=== PATIENT | female | born 1980 | race Caucasian/White ===

== ENCOUNTER 2020-01-02 20:39 | Emergency (ER) | payer SELFPAY ==
[2020-01-02 21:18] LABS: Absolute Lymphocytes (CBC) 2.3 K/uL (0.7-4.9); Basophils % 2.1 % (0-1.3); Hematocrit 39.8 % (36.0-45.0); MPV 9.2 fL (7.6-11.3); RBC Red Blood Cell Count 4.72 M/uL (3.86-4.86)
[2020-01-02 21:27] LABS: Protime INR 0.94
[2020-01-02 21:56] LABS: ALT/SGPT 23 U/L (12-78); Albumin 3.8 g/dL (3.4-5.0); Alkaline Phosphatase 49 U/L (45-117); BUN Blood Urea Nitrogen 8 mg/dL (7-18); Bicarbonate 22 mmol/L (21-32); Bilirubin Direct < 0.1 mg/dL (0-0.2); Bilirubin Total 0.3 mg/dL (0.2-1.0); Glucose Level 78 mg/dL (74-106); Protein, Total 7.9 g/dL (6.4-8.2); Sodium Level 140 mmol/L (136-145)
[2020-01-02 21:57] LABS: AST/SGOT 23 U/L (15-37); Potassium 3.6 mmol/L (3.5-5.1)
[2020-01-02 22:16] LABS: Barbiturates NEGATIVE (NEGATIVE); Benzodiazepines NEGATIVE (NEGATIVE); Cocaine NEGATIVE (NEGATIVE); METHAMPHETAM NEGATIVE (NEGATIVE); Methadone NEGATIVE (NEGATIVE); Opiates NEGATIVE (NEGATIVE); Phencyclidine NEGATIVE (NEGATIVE); THC Cannibis NEGATIVE (NEGATIVE)
[2020-01-02] MEDS ORDERED: THIAMINE 200 MG/2 ML INJ ONE (23:32)
[2020-01-02] MEDS ORDERED: MULTIVITAMINS 10 ML VIAL (INJ) IV ONE (23:32)
[2020-01-02] MEDS ORDERED: NA CHLORIDE 0.9% 0 ML ONE (23:33)
[2020-01-02] MEDS ORDERED: FOLIC ACID 5 MG/ML VIAL ONE (23:33)
--- NOTE | 2020-01-02 23:39 | EDPHYS ---
Physician Documentation [facility] Name: Francy Rodriguez Age: 39 yrs Sex: Female : 1980 Arrival Date: 01/02/2020 Time: 20:41 Bed 19 Private MD: ED Physician Alvaro Waters HPI: 01/01 20:49 This 39 yrs old Female presents to ER via EMS with complaints of Depression. pm1 20:49 The patient presents to the emergency department with depression, over work, Getting pm1 demoted. Onset: The symptoms/episode began/occurred today. Past psychiatric history: Prior diagnosis: Anxiety and Depression. Associated signs and symptoms: The patient has no apparent associated signs or symptoms, Pertinent negatives: chest pain, homicidal ideation, shortness of breath, suicide ideation. Severity of symptoms: Pain is currently a 0 / 10. 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 She would be allowed to stay at [employer] but she would be demoted. She got into an argument with her boss and was told that she needs to go home. Her boyfriend met up with her at home and they drank beers. They were enjoying their evening when a naval police coxswain told them that she could either go to shelter with the officer or go to the hospital by ambulance. She posted on face book that she felt frozen about what to do. She was referring to her job and denies any suicidal or homicidal ideation. Her boyfriend is consistent with her story. 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 - Social history:: Smoking status: Patient reports the use of cigarette tobacco products, smokes one pack cigarettes per day. Patient uses alcohol, on a daily basis. Patient/guardian denies using street drugs. ROS: 20:54 Constitutional: Negative for fever, chills, and weight loss, Eyes: Negative for injury, pm1 pain, redness, and discharge, ENT: Negative for injury, pain, and discharge, Neck: Negative for injury, pain, and swelling, Cardiovascular: Negative for chest pain, palpitations, and edema, Respiratory: Negative for shortness of breath, cough, wheezing, and pleuritic chest pain, Abdomen/GI: Negative for abdominal pain, nausea, vomiting, diarrhea, and constipation, Back: Negative for injury and pain, MS/Extremity: Negative for injury and deformity, Skin: Negative for injury, rash, and discoloration, Neuro: Negative for headache, weakness, numbness, tingling, and seizure. 20:54 Psych: Positive for depression, Stress, Negative for homicidal ideation, suicide gesture, suicidal ideation. Exam: 20:54 Constitutional: This is a well developed, well nourished patient who is awake, alert, pm1 and in no acute distress. Head/Face: Normocephalic, atraumatic. 20:54 Back: No spinal tenderness. No costovertebral tenderness. Full range of motion. Skin: Warm, dry with normal turgor. Normal color with no rashes, no lesions, and no evidence of cellulitis. MS/ Extremity: Pulses equal, no cyanosis. Neurovascular intact. Full, normal range of motion. 20:54 Cardiovascular: Exam negative for acute changes, Rate: normal, Rhythm: regular, Pulses: no pulse deficits are appreciated. 20:54 Respiratory: Exam negative for acute changes, respiratory distress, shortness of breath. 20:54 Neuro: Exam negative for acute changes, Orientation: is normal, Mentation: is normal, Motor: is normal, moves all fours. 20:54 Psych: Behavior/mood is cooperative, Affect is animated, Oriented to person, place, time, Patient has no thoughts/intents to harm self or others. Judgement / Insight is normal. Vital Signs: 20:45 BP 138 / 88; Pulse 111; Resp 18; Temp 97.9; Pulse Ox 100% ; Weight 90.72 kg; Height 6 rr5 ft. 0 in. (182.88 cm); 23:40 BP 130 / 80; Pulse 95; Resp 18; Temp 98; Pulse Ox 100% on R/A; mg2 20:45 Body Mass Index 27.12 (90.72 kg, 182.88 cm) rr5 MDM: 20:47 Patient medically screened. pm1 23:37 Data reviewed: vital signs. Data interpreted: Pulse oximetry: on room air is 100 %. pm1 Interpretation: normal. Counseling: I had a detailed discussion with the patient and/or guardian regarding: the historical points, exam findings, and any diagnostic results supporting the discharge/admit diagnosis, lab results, the need for outpatient follow up, a family practitioner, a psychiatrist, to return to the emergency department if symptoms worsen or persist or if there are any questions or concerns that arise at home. 01/01 20:49 Order name: Acetaminophen pm1 01/01 20:49 Order name: Basic Metabolic Panel; Complete Time: 22:13 pm1 01/01 20:49 Order name: CBC with Diff; Complete Time: 21:28 pm1 01/01 20:49 Order name: ETOH Level; Complete Time: 22:13 pm1 01/01 20:49 Order name: Hepatic Function; Complete Time: 22:13 pm1 01/01 20:49 Order name: PT-INR; Complete Time: 21:37 pm1 01/01 20:49 Order name: Urine Test (obtain specimen); Complete Time: 22:05 pm1 01/01 20:49 Order name: Ptt, Activated; Complete Time: 21:37 pm1 01/01 20:49 Order name: Salicylate; Complete Time: 22:13 pm1 01/01 20:49 Order name: Urine Drug Screen; Complete Time: 22:21 pm1 01/01 20:49 Order name: EKG; Complete Time: 20:50 pm1 01/01 20:49 Order name: EKG - Nurse/Tech; Complete Time: 21:32 pm1 01/01 20:50 Order name: Acetaminophen Level; Complete Time: 22:13 EDMS 01/01 23:46 Order name: Urine Dipstick--Ancillary (enter results) ar5 01/01 20:49 Order name: IV Saline Lock; Complete Time: 21:32 pm1 01/01 20:49 Order name: Labs collected and sent; Complete Time: 21:31 pm1 01/01 20:49 Order name: Urine Dipstick-Ancillary (obtain specimen); Complete Time: 22:05 pm1 Administered Medications: No medications were administered Disposition: 01/02 01:19 Co-signature as Attending Physician, Alvaro Waters MD. pkl Disposition: 01/02/20 23:38 Discharged to Home. Impression: Acute stress reaction, Alcohol abuse with intoxication. - Condition is Stable. - Discharge Instructions: Alcohol Intoxication, Stress and Stress Management. - Medication Reconciliation Form, Thank You Letter, Antibiotic Education, Prescription Opioid Use form. - Follow up: Emergency Department; When: As needed; Reason: Worsening of condition. Follow up: Private Physician; When: 2 - 3 days; Reason: Recheck today's complaints, Continuance of care, Re-evaluation by your physician. - Problem is new. - Symptoms have improved. Signatures: Dispatcher [employer] EDMS Alvaro Waters, Dominguez Mcwilliams MD, HEALTH UNIT CLERK HEALTH UNIT CLERK pm1 Tono Chavez RN RN mg2 Ridge Rayo RN RN rr5 Corrections: (The following items were deleted from the chart) 01/01 23:48 23:38 01/02/2020 23:38 Discharged to Home. Impression: Acute stress reaction; Alcohol mg2 abuse with intoxication. Condition is Stable. Forms are Medication Reconciliation Form, Thank You Letter, Antibiotic Education, Prescription Opioid Use. Follow up: Emergency Department; When: As needed; Reason: Worsening of condition. Follow up: Private Physician; When: 2 - 3 days; Reason: Recheck today's complaints, Continuance of care, Re-evaluation by your physician. Problem is new. Symptoms have improved. pm1
--- NOTE | 2020-01-02 23:39 | ER ---
Nurse's Notes [facility] Name: Francy Rodriguez Age: 39 yrs Sex: Female : 1980 Arrival Date: 01/02/2020 Time: 20:41 Bed 19 Private MD: Diagnosis: Acute stress reaction;Alcohol abuse with intoxication Presentation: 01/01 20:45 Chief complaint: EMS states: patient very emotional,she text her friend thinking of rr5 suicidal thoughts for a while now. denies hurting others. ETOH positive started today 2 PM. not the first incident, she is not taking any medication. cigarette quinn noted on her left wrist area. 20:45 Coronavirus screen: Client denies travel out of the [place] in the last 14 days. At this rr5 time, the client does not indicate any symptoms associated with coronavirus-19. Ebola Screen: Patient negative for fever greater than or equal to 101.5 degrees Fahrenheit, and additional compatible Ebola Virus Disease symptoms Patient denies exposure to infectious person. Patient denies travel to an Ebola-affected area in the 21 days before illness onset. Initial Sepsis Screen: Does the patient meet any 2 criteria? No. Patient's initial sepsis screen is negative. Does the patient have a suspected source of infection? No. Patient's initial sepsis screen is negative. Risk Assessment: Do you want to hurt yourself or someone else? Patient reports desire/thoughts of hurting themselves or someone else. Provider notified. Onset of symptoms was January 02, 2020. 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 - Social history:: Smoking status: Patient reports the use of cigarette tobacco products, smokes one pack cigarettes per day. Patient uses alcohol, on a daily basis. Patient/guardian denies using street drugs. Screenin:55 Abuse screen: Denies threats or abuse. Denies injuries from another. Nutritional rr5 screening: No deficits noted. Tuberculosis screening: No symptoms or risk factors identified. Fall Risk IV access (20 points). Total Barroso Fall Scale indicates No Risk (0-24 pts). Assessment: 20:55 General: Appears in no apparent distress. Behavior is crying, emotional. Smells of rr5 alcohol. Pain: Denies pain. Neuro: Level of Consciousness is awake, alert, obeys commands, Oriented to person, place, time. Cardiovascular: Capillary refill < 3 seconds Patient's skin is warm and dry. Respiratory: Airway is patent Respiratory effort is even, unlabored, Respiratory pattern is regular, symmetrical. GI: No signs and/or symptoms were reported involving the gastrointestinal system. : No signs and/or symptoms were reported regarding the genitourinary system. EENT: No signs and/or symptoms were reported regarding the EENT system. Derm: Wound noted dorsal aspect of left wrist Wound is cigarette burn. Musculoskeletal: Capillary refill < 3 seconds. 21:32 Reassessment: and the patient said she is not suicidal. they don't know who mg2 called the battery technician saying that she is not well. she had a fight with her boss today about promotion. 23:47 Reassessment: provider spoke to the patient and . patient is not suicidal. mg2 discharged accompanied by the . Psych: 21:00 Subjective: no suicidal thoughts. Objective: Patient is cooperative, Speech is normal, mg2 Affect is appropriate. Interventions: Patient placed in hospital gown. Suicide Risk Assessment: Sad Person Scale: Sex of patient: Female: Score 0 points. Age of patient: Score 0 point if patient falls outside of specified age parameters. Depression: Score 0 point if signs of depression are not present. Previous Attempt: Score 1 point if patient has previously attempted suicide. Substance Abuse: Score 0 point if patient does not abuse alcohol or drugs. Rational Thinking: Score 0 point if patient has rational thinking. Social Support: Score 0 if social support is present/available. Organized Plan: Score 0 if patient did not have an organized plan in place. Relationship: Score 0 point if patient has a spouse or domestic partner. Chronic Sickness: Score 0 point if patient does not have a chronic illness, debilitating, or severe disorder. Safety Checks: Personal items have been removed. Door is open. Visitors are present. Patient uses Last use was 5 hours ago. Commitment:. Vital Signs: 20:45 BP 138 / 88; Pulse 111; Resp 18; Temp 97.9; Pulse Ox 100% ; Weight 90.72 kg; Height 6 rr5 ft. 0 in. (182.88 cm); 23:40 BP 130 / 80; Pulse 95; Resp 18; Temp 98; Pulse Ox 100% on R/A; mg2 20:45 Body Mass Index 27.12 (90.72 kg, 182.88 cm) rr5 ED Course: 20:41 Patient arrived in ED. ag3 20:47 Dominguez Carrillo NP is PHCP. pm1 20:47 Alvaro Waters MD is Attending Physician. pm1 20:53 Triage completed. rr5 20:55 Arm band placed on. rr5 20:55 Patient has correct armband on for positive identification. Placed in gown. Bed in low rr5 position. Call light in reach. Side rails up X2. sitter at bedside. 21:31 Tono Chavez, JHOANA is Primary Nurse. mg2 21:33 No provider procedures requiring assistance completed. Inserted saline lock: 22 gauge mg2 in right wrist, using aseptic technique. Blood collected. 23:47 IV discontinued, intact, bleeding controlled, No redness/swelling at site. Pressure mg2 dressing applied. Administered Medications: No medications were administered Outcome: 23:38 Discharge ordered by MD. pm1 23:47 Discharged to home ambulatory, with family. mg2 23:47 Condition: stable 23:47 Discharge instructions given to patient, Instructed on discharge instructions, follow up and referral plans. Demonstrated understanding of instructions, follow-up care. 23:48 Patient left the ED. mg2 Signatures: Dominguez Carrillo NP HEATER OPERATOR HELPER pm1 Tono Chavez, JHOANA RN mg2 Chantel Schwartz ag3 Ridge Rayo RN RN rr5 Corrections: (The following items were deleted from the chart) 01/02 04:07 10 23:47 Reassessment: provider spoke to the patient and . patient is not mg2 suicidal. discharged. mg2
[2020-01-02 23:58] LABS: Urine Blood TRACE (NEG); Urine Glucose NEGATIVE (NEG); Urine Protein NEGATIVE (NEG); Urine Specific Gravity <1.005 (1.005-1.030); Urine pH 5.5 (5.0-7.0)
[2020-01-03 01:04] VITALS: BP 138/88; TEMP 97.9; O2SAT 100
== END 2020-01-02 23:48 | disposition home or self-care (01) ==
LOC: ER 20:39
DX: F10.129 Alcohol abuse with intoxication, unspecified (principal); F41.8 Other specified anxiety disorders; F17.210 Nicotine dependence, cigarettes, uncomplicated; Z88.0 Allergy status to penicillin
CPT/HCPCS: 36415; 80048; 80076; 80307; 80320; 80329; 81003; 85025; 85610; 85730; 93005; 99283; J3411; J7030

== ENCOUNTER 2020-02-09 12:32 | Emergency (ER) | payer SELFPAY ==
--- NOTE | 2020-02-09 13:09 | EDPHYS ---
Physician Documentation [facility] Name: Francy Rodriguez Age: 39 yrs Sex: Female : 1980 Arrival Date: 02/09/2020 Time: 12:34 Bed 6 Private MD: Andrea Forbes HPI: 02/08 15:49 This 39 yrs old Female presents to ER via Ambulatory with complaints of snw Toothache. 15:49 The patient presents with pain, swelling. The problem is located in the lower left snw first molar (#19) and lower left second molar (#18) and lower left third molar (#17) and upper left third molar (#16). Onset: The symptoms/episode began/occurred suddenly. Duration: The symptoms are continuous. Associated signs and symptoms: Pertinent positives: swelling, mandibular. Severity of symptoms: At their worst the symptoms were moderate. The patient has not experienced similar symptoms in the past. It is unknown whether or not the patient has recently seen a physician. 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 - Social history:: Smoking status: Patient reports the use of cigarette tobacco products, smokes one-half pack cigarettes per day. ROS: 15:48 Constitutional: Negative for fever, chills, and weight loss, Eyes: Negative for injury, snw pain, redness, and discharge, Neck: Negative for injury, pain, and swelling, Cardiovascular: Negative for chest pain, palpitations, and edema, Respiratory: Negative for shortness of breath, cough, wheezing, and pleuritic chest pain, Abdomen/GI: Negative for abdominal pain, nausea, vomiting, diarrhea, and constipation, Back: Negative for injury and pain, : Negative for injury, bleeding, discharge, and swelling, MS/Extremity: Negative for injury and deformity, Skin: Negative for injury, rash, and discoloration, Neuro: Negative for headache, weakness, numbness, tingling, and seizure, Psych: Negative for depression, anxiety, suicide ideation, homicidal ideation, and hallucinations. 15:48 ENT: Positive for dental pain. Exam: 15:40 Constitutional: This is a well developed, well nourished patient who is awake, alert, snw and in no acute distress. Head/Face: Normocephalic, atraumatic. Eyes: Pupils equal round and reactive to light, extra-ocular motions intact. Lids and lashes normal. Conjunctiva and sclera are non-icteric and not injected. Cornea within normal limits. Periorbital areas with no swelling, redness, or edema. Neck: Trachea midline, no thyromegaly or masses palpated, and no cervical lymphadenopathy. Supple, full range of motion without nuchal rigidity, or vertebral point tenderness. No Meningismus. Chest/axilla: Normal chest wall appearance and motion. Nontender with no deformity. No lesions are appreciated. Cardiovascular: Regular rate and rhythm with a normal S1 and S2. No gallops, murmurs, or rubs. Normal PMI, no JVD. No pulse deficits. Respiratory: Lungs have equal breath sounds bilaterally, clear to auscultation and percussion. No rales, rhonchi or wheezes noted. No increased work of breathing, no retractions or nasal flaring. Abdomen/GI: Soft, non-tender, with normal bowel sounds. No distension or tympany. No guarding or rebound. No evidence of tenderness throughout. Back: No spinal tenderness. No costovertebral tenderness. Full range of motion. Skin: Warm, dry with normal turgor. Normal color with no rashes, no lesions, and no evidence of cellulitis. MS/ Extremity: Pulses equal, no cyanosis. Neurovascular intact. Full, normal range of motion. Neuro: Awake and alert, GCS 15, oriented to person, place, time, and situation. Cranial nerves II-XII grossly intact. Motor strength 5/5 in all extremities. Sensory grossly intact. Cerebellar exam normal. Normal gait. Psych: Awake, alert, with orientation to person, place and time. Behavior, mood, and affect are within normal limits. 15:40 ENT: Dental exam: dental caries, that is severe, diffusely, gum swelling, that is moderate, pain, that is moderate, that is severe, specifically in the upper left third molar (#16), lower left third molar (#17), lower left second molar (#18) and lower left first molar (#19). Vital Signs: 12:47 BP 137 / 87; Pulse 92; Resp 15; Temp 97.5(TE); Pulse Ox 99% on R/A; Weight 80.74 kg; ss Height 6 ft. 0 in. (182.88 cm); Pain 10/10; 12:47 Body Mass Index 24.14 (80.74 kg, 182.88 cm) ss MDM: 12:51 Patient medically screened. snw 15:48 Data reviewed: vital signs, nurses notes. Counseling: I had a detailed discussion with snw the patient and/or guardian regarding: the historical points, exam findings, and any diagnostic results supporting the discharge/admit diagnosis, the presence of at least one elevated blood pressure reading (>120/80) during this emergency department visit, the need for outpatient follow up, to return to the emergency department if symptoms worsen or persist or if there are any questions or concerns that arise at home. Special discussion: Based on the history and exam findings, there is no indication for further emergent testing or inpatient evaluation. I discussed with the patient/guardian the need to see a dentist for further evaluation of the symptoms. Administered Medications: 13:38 Drug: Clindamycin 600 mg Route: IM; Site: right gluteus; jd3 14:00 Follow up: Response: No adverse reaction jd3 13:39 Drug: TORadol 60 mg Route: IM; Site: left gluteus; jd3 14:00 Follow up: Response: No adverse reaction jd3 Disposition: 02/09 08:29 Co-signature as Attending Physician, Andrea Crooks MD I agree with the assessment and stu plan of care. Disposition: 02/09/20 13:08 Discharged to Home. Impression: Diseases of pulp and periapical tissues. - Condition is Stable. - Discharge Instructions: Dental Caries, Adult, Dental Pain, Preventive Dental Care, Adult. - Prescriptions for chlorhexidine gluconate 0.12 % Mucous Membrane mouthwash - place 15 milliliter by MUCOUS MEMBRANE route 2 times per day after brushing teeth, swish in mouth for 30 seconds then spit out; 480 milliliter. Clindamycin HCl 300 mg Oral Capsule - take 1 capsule by ORAL route every 6 hours for 10 days; 40 capsule. Diclofenac Sodium 75 mg Oral Tablet Sustained Release - take 1 tablet by ORAL route 2 times per day; 30 tablet. - Medication Reconciliation Form, Thank You Letter, Antibiotic Education, Prescription Opioid Use form. - Follow up: Emergency Department; When: As needed; Reason: Worsening of condition. Follow up: Private Physician; When: 2 - 3 days; Reason: Recheck today's complaints, Continuance of care, Re-evaluation by your physician. Signatures: Andrea Crooks MD MD cha Waters, Shelly, LEGAL ANALYST-C LEGAL ANALYST-Csnw Marva Betancourt RN RN ss Gurpreet Flores RN RN jd3 Corrections: (The following items were deleted from the chart) 02/08 14:00 13:08 02/09/2020 13:08 Discharged to Home. Impression: Diseases of pulp and periapical jd3 tissues. Condition is Stable. Forms are Medication Reconciliation Form, Thank You Letter, Antibiotic Education, Prescription Opioid Use. Follow up: Emergency Department; When: As needed; Reason: Worsening of condition. Follow up: Private Physician; When: 2 - 3 days; Reason: Recheck today's complaints, Continuance of care, Re-evaluation by your physician. snw
--- NOTE | 2020-02-09 13:09 | ER ---
Nurse's Notes [facility] Name: Francy Rodriguez Age: 39 yrs Sex: Female : 1980 Arrival Date: 02/09/2020 Time: 12:34 Bed 6 Private MD: Diagnosis: Diseases of pulp and periapical tissues Presentation: 02/08 12:47 Chief complaint: Patient states: dental pain and L sided facial swelling that began 1 ss week ago but became much worse overnight. Coronavirus screen: Client denies travel out of the [place] in the last 14 days. Ebola Screen: Patient denies exposure to infectious person. Patient denies travel to an Ebola-affected area in the 21 days before illness onset. Initial Sepsis Screen: Does the patient meet any 2 criteria? Does the patient have a suspected source of infection? Yes: Other: dental infection. Risk Assessment: Do you want to hurt yourself or someone else? Patient reports no desire to harm self or others. Onset of symptoms was February 03, 2020. 12:47 Method Of Arrival: Ambulatory ss 12:47 Acuity: TOBIAS 3 ss RECORDING CLERK: 14:00 LMP N/A - Irregular menses jd3 Historical: - Allergies: 12:50 PENICILLINS; ss 12:50 Rocephin; ss 12:50 Morphine; ss - PMHx: 12:50 Anxiety; Asthma; COPD; Depression; ss - PSHx: 12:50 Gastric Bypass; large intestine removed; ss - Immunization history:: Adult Immunizations up to date. - Social history:: Smoking status: Patient reports the use of cigarette tobacco products, smokes one-half pack cigarettes per day. Screenin:37 Abuse screen: Denies threats or abuse. Denies injuries from another. Nutritional ph screening: No deficits noted. Tuberculosis screening: No symptoms or risk factors identified. Fall Risk None identified. Assessment: 13:36 General: Appears in no apparent distress. uncomfortable, Behavior is calm, cooperative. ph Pain: Complains of pain in left jaw. Neuro: Level of Consciousness is awake, alert, obeys commands, Oriented to person, place, time, situation. Cardiovascular: Capillary refill < 3 seconds in bilateral fingers Patient's skin is warm and dry. Respiratory: Airway is patent Respiratory effort is even, unlabored. EENT: Reports pain in left jaw. Derm: Skin is intact, Skin is pink, warm \T\ dry. Musculoskeletal: Swelling present in left jaw. 13:38 Reassessment: D/C pending shot time. ph 13:59 Reassessment: Patient appears in no apparent distress at this time. Patient and/or jd3 family updated on plan of care and expected duration. Pain level reassessed. Patient is alert, oriented x 3, equal unlabored respirations, skin warm/dry/pink. no adverse reaction to medications. Vital Signs: 12:47 BP 137 / 87; Pulse 92; Resp 15; Temp 97.5(TE); Pulse Ox 99% on R/A; Weight 80.74 kg; ss Height 6 ft. 0 in. (182.88 cm); Pain 10/10; 12:47 Body Mass Index 24.14 (80.74 kg, 182.88 cm) ED Course: 12:34 Patient arrived in ED. ds1 12:49 Triage completed. ss 12:50 [facility]C [facility]. snw 12:50 Andrea Crooks MD is Attending Physician. snw 12:50 Arm band placed on right wrist. ss 13:18 Lian Ibarra, RN is Primary Nurse. ph 13:37 Patient has correct armband on for positive identification. Bed in low position. Call ph light in reach. Side rails up X 1. Pulse ox on. NIBP on. Door closed. Noise minimized. Warm blanket given. 13:58 Primary Nurse role handed off by Lian Ibarra, RN jd3 13:58 Gurpreet Flores, JHOANA is Primary Nurse. jd3 13:59 No provider procedures requiring assistance completed. Patient did not have IV access jd3 during this emergency room visit. Administered Medications: 13:38 Drug: Clindamycin 600 mg Route: IM; Site: right gluteus; jd3 14:00 Follow up: Response: No adverse reaction jd3 13:39 Drug: TORadol 60 mg Route: IM; Site: left gluteus; jd3 14:00 Follow up: Response: No adverse reaction jd3 Outcome: 13:08 Discharge ordered by . snw 13:59 Discharged to home ambulatory, with family. jd3 13:59 Condition: stable 13:59 Discharge instructions given to patient, family, Instructed on discharge instructions, follow up and referral plans. medication usage, Demonstrated understanding of instructions, follow-up care, medications, Prescriptions given X 3. 14:00 Patient left the ED. jd3 Signatures: Megan Ya, [employer]PER[employer]OR-Mita Summers ds1 Marva Betancourt, RN RN Lian Cox RN RN Gurpreet Mullen RN RN jd3
[2020-02-09] MEDS ORDERED: KETOROLAC 30 MG/ML INJ ONE (13:39)
[2020-02-09] MEDS ORDERED: CLINDAMYCIN IV 150 MG/ML (4 mL) VIAL ONE (13:39)
[2020-02-14 17:41] VITALS: BP 137/87; TEMP 97.5; O2SAT 99
== END 2020-02-09 14:00 | disposition home or self-care (01) ==
LOC: ER 12:32
DX: K04.90 Unspecified diseases of pulp and periapical tissues (principal); F17.210 Nicotine dependence, cigarettes, uncomplicated; Z88.0 Allergy status to penicillin; Z88.3 Allergy status to other anti-infective agents; Z88.5 Allergy status to narcotic agent
CPT/HCPCS: 96372; 99283; S0077

== ENCOUNTER 2020-02-09 22:09 | Emergency (ER) | payer SELFPAY ==
--- NOTE | 2020-02-09 22:49 | EDPHYS ---
Physician Documentation [facility] Name: Francy Rodriguez Age: 39 yrs Sex: Female : 1980 Arrival Date: 02/09/2020 Time: 22:10 Bed 20 Private MD: ED Physician Alvaro Waters HPI: 02/08 23:01 This 39 yrs old Female presents to ER via Ambulatory with complaints of kb Toothache. 23:01 The patient presents with pain, redness, swelling. The problem is located in the lower kb left second bicuspid (#20) and lower left first molar (#19) and lower left second molar (#18) and lower left third molar (#17). Onset: The symptoms/episode began/occurred yesterday. Duration: The symptoms are continuous. Modifying factors: The symptoms are alleviated by nothing, the symptoms are aggravated by nothing. Associated signs and symptoms: Pertinent positives: pain, redness in area, swelling. Severity of symptoms: At their worst the symptoms were moderate, in the emergency department the symptoms are unchanged. The patient has experienced similar episodes in the past, a few times. The patient has been recently seen at the [facility] Emergency Department, today, for similar complaints was given a prescription for antibiotics, was given a prescription for pain medications. Pt reports she was here earlier and received antibiotics for her teeth. States she took a nap and the swelling seemed to get worse so she just wanted to get looked at again to make sure there was nothing else that needed to be done. ELIGIBILITY CLERK: 22:27 LMP 01/07/2020 lp1 Historical: - Allergies: 22:23 Morphine; lp1 22:23 PENICILLINS; lp1 22:23 Rocephin; lp1 - Home Meds: 22:23 None [Active]; lp1 - PMHx: 22:23 Anxiety; Asthma; COPD; Depression; lp1 - PSHx: 22:23 Gastric Bypass; ; lp1 - Immunization history:: Adult Immunizations up to date. - Social history:: Smoking status: Patient reports the use of cigarette tobacco products, smokes one pack cigarettes per day. ROS: 23:00 Constitutional: Negative for fever, chills, and weight loss, Cardiovascular: Negative kb for chest pain, palpitations, and edema, Respiratory: Negative for shortness of breath, cough, wheezing, and pleuritic chest pain, Abdomen/GI: Negative for abdominal pain, nausea, vomiting, diarrhea, and constipation, MS/Extremity: Negative for injury and deformity, Skin: Negative for injury, rash, and discoloration, Neuro: Negative for headache, weakness, numbness, tingling, and seizure. 23:00 ENT: Positive for Teeth pain Exam: 23:00 Constitutional: This is a well developed, well nourished patient who is awake, alert, kb and in no acute distress. Head/Face: Normocephalic, atraumatic. Skin: Warm, dry with normal turgor. Normal color with no rashes, no lesions, and no evidence of cellulitis. MS/ Extremity: Pulses equal, no cyanosis. Neurovascular intact. Full, normal range of motion. Neuro: Awake and alert, GCS 15, oriented to person, place, time, and situation. Cranial nerves II-XII grossly intact. Motor strength 5/5 in all extremities. Sensory grossly intact. Cerebellar exam normal. Normal gait. 23:00 ENT: Dental exam: abscess, that is moderate, specifically in the lower left second molar (#18) and lower left first molar (#19), dental caries, that is moderate, diffusely, gum swelling, that is moderate, specifically in the lower left third molar (#17), lower left second molar (#18), lower left first molar (#19) and lower left second bicuspid (#20), pain. Vital Signs: 22:24 BP 154 / 102; Pulse 92; Resp 18; Temp 98.5(O); Pulse Ox 99% on R/A; Weight 80.74 kg lp1 (R); Height 6 ft. 0 in. (182.88 cm); Pain 10/10; 23:11 BP 151 / 107; Pulse 85; Resp 16; Pulse Ox 100% on R/A; jb4 22:24 Body Mass Index 24.14 (80.74 kg, 182.88 cm) lp1 MDM: 22:33 Patient medically screened. kb 23:00 Data reviewed: vital signs, nurses notes. Data interpreted: Pulse oximetry: on room air kb is 99 %. Interpretation: normal. Counseling: I had a detailed discussion with the patient and/or guardian regarding: the historical points, exam findings, and any diagnostic results supporting the discharge/admit diagnosis, the need for outpatient follow up, a dentist, to return to the emergency department if symptoms worsen or persist or if there are any questions or concerns that arise at home. Administered Medications: 23:06 Drug: Zofran (Ondansetron) 4 mg Route: PO; jb4 23:10 Follow up: Response: Medication administered at discharge. jb4 23:06 Drug: [place] 10 mg-325 mg 1 tabs Route: PO; jb4 23:10 Follow up: Response: Medication administered at discharge. jb4 Disposition: 02/09 06:30 Co-signature as Attending Physician, Alvaro Waters MD. donna Disposition: 02/09/20 22:48 Discharged to Home. Impression: Periapical abscess without sinus. - Condition is Stable. - Discharge Instructions: Dental Pain, [id number], Dental Abscess, [id number]. - Prescriptions for Ibuprofen 800 mg Oral Tablet - take 1 tablet by ORAL route every 8 hours As needed take with food; 30 tablet. Zofran 4 mg Oral Tablet - take 1 tablet by ORAL route every 6 hours As needed; 20 tablet. - Medication Reconciliation Form, Thank You Letter, Antibiotic Education, Prescription Opioid Use form. - Follow up: Emergency Department; When: As needed; Reason: Worsening of condition. Follow up: Private Physician; When: 2 - 3 days; Reason: Recheck today's complaints, Continuance of care, Re-evaluation by your physician. Signatures: Gladys Chavez, ACADEMIC AFFAIRS DEAN-C [employer] DEAN-Alvaro Yoo MD MD pk Leny Seklton RN RN lp1 Colt Haskins RN RN jb4 Corrections: (The following items were deleted from the chart) 02/08 23:01 23:00 Constitutional: This is a well developed, well nourished patient who is awake, kb alert, and in no acute distress. Head/Face: Normocephalic, atraumatic. Skin: Warm, dry with normal turgor. Normal color with no rashes, no lesions, and no evidence of cellulitis. MS/ Extremity: Pulses equal, no cyanosis. Neurovascular intact. Full, normal range of motion. Neuro: Awake and alert, GCS 15, oriented to person, place, time, and situation. Cranial nerves II-XII grossly intact. Motor strength 5/5 in all extremities. Sensory grossly intact. Cerebellar exam normal. Normal gait. kb 23:11 22:48 02/09/2020 22:48 Discharged to Home. Impression: Periapical abscess without jb4 sinus. Condition is Stable. Forms are Medication Reconciliation Form, Thank You Letter, Antibiotic Education, Prescription Opioid Use. Follow up: Emergency Department; When: As needed; Reason: Worsening of condition. Follow up: Private Physician; When: 2 - 3 days; Reason: Recheck today's complaints, Continuance of care, Re-evaluation by your physician. kb
--- NOTE | 2020-02-09 22:49 | ER ---
Nurse's Notes [facility] Name: Francy Rodriguez Age: 39 yrs Sex: Female : 1980 Arrival Date: 02/09/2020 Time: 22:10 Bed 20 Private MD: Diagnosis: Periapical abscess without sinus Presentation: 02/08 22:19 Chief complaint: Patient states: Toothache x 1 week, seen in ED this afternoon for lp1 complaint but states swelling to left jaw has worsened and pain is severe; Reports unable to tolerate food or liquid, vomited x3-4 today. Coronavirus screen: Client denies travel out of the [place] in the last 14 days. At this time, the client does not indicate any symptoms associated with coronavirus-19. Ebola Screen: No symptoms or risks identified at this time. Initial Sepsis Screen: Does the patient meet any 2 criteria? No. Patient's initial sepsis screen is negative. Does the patient have a suspected source of infection? No. Patient's initial sepsis screen is negative. Risk Assessment: Do you want to hurt yourself or someone else? Patient reports no desire to harm self or others. Onset of symptoms was February 09, 2020. 22:19 Method Of Arrival: Ambulatory lp1 22:19 Acuity: TOBIAS 3 lp1 Triage Assessment: 02/09 03:32 General: Appears. jb4 INSTRUCTOR NURSE: 02/08 22:27 LMP 01/07/2020 lp1 Historical: - Allergies: 22:23 Morphine; lp1 22:23 PENICILLINS; lp1 22:23 Rocephin; lp1 - Home Meds: 22:23 None [Active]; lp1 - PMHx: 22:23 Anxiety; Asthma; COPD; Depression; lp1 - PSHx: 22:23 Gastric Bypass; ; lp1 - Immunization history:: Adult Immunizations up to date. - Social history:: Smoking status: Patient reports the use of cigarette tobacco products, smokes one pack cigarettes per day. Screenin:23 Abuse screen: Denies threats or abuse. Denies injuries from another. Nutritional lp1 screening: No deficits noted. Tuberculosis screening: No symptoms or risk factors identified. Fall Risk None identified. Assessment: 22:30 General: Appears in no apparent distress. uncomfortable, Behavior is calm, cooperative, jb4 appropriate for age. Pain: Complains of pain in face Pain does not radiate. Pain currently is 10 out of 10 on a pain scale. Neuro: Level of Consciousness is awake, alert, obeys commands, Oriented to person, place, time, situation. Cardiovascular: Patient's skin is warm and dry. Respiratory: Airway is patent Respiratory effort is even, unlabored, Respiratory pattern is regular, symmetrical. GI: No signs and/or symptoms were reported involving the gastrointestinal system. : No signs and/or symptoms were reported regarding the genitourinary system. EENT: Throat is clear with gag reflex present. Derm: Skin is intact, Skin is pink, warm \T\ dry. Musculoskeletal: Circulation, motion, and sensation intact. Range of motion: intact in all extremities. Vital Signs: 22:24 BP 154 / 102; Pulse 92; Resp 18; Temp 98.5(O); Pulse Ox 99% on R/A; Weight 80.74 kg lp1 (R); Height 6 ft. 0 in. (182.88 cm); Pain 10/10; 23:11 BP 151 / 107; Pulse 85; Resp 16; Pulse Ox 100% on R/A; jb4 22:24 Body Mass Index 24.14 (80.74 kg, 182.88 cm) lp1 ED Course: 22:10 Patient arrived in ED. cl3 22:22 Triage completed. lp1 22:22 Arm band placed on right wrist. lp1 22:30 Patient has correct armband on for positive identification. Bed in low position. Call jb4 light in reach. Side rails up X 1. Pulse ox on. NIBP on. 22:33 Gladys Chavez FNP-C is PHCP. kb 22:33 Alvaro Waters MD is Attending Physician. kb 22:56 Colt Haskins, JHOANA is Primary Nurse. jb4 23:10 No provider procedures requiring assistance completed. Patient did not have IV access jb4 during this emergency room visit. Administered Medications: 23:06 Drug: Zofran (Ondansetron) 4 mg Route: PO; jb4 23:10 Follow up: Response: Medication administered at discharge. jb4 23:06 Drug: [place] 10 mg-325 mg 1 tabs Route: PO; jb4 23:10 Follow up: Response: Medication administered at discharge. jb4 Outcome: 22:48 Discharge ordered by . manasa 23:10 Discharged to home ambulatory, with family. jb4 23:10 Condition: stable 23:10 Discharge instructions given to patient, Instructed on discharge instructions, follow up and referral plans. medication usage, Demonstrated understanding of instructions, follow-up care, medications, Prescriptions given X 2. 23:11 Patient left the ED. jb4 Signatures: Gladys Chavez, PATIENT OBSERVER-C PATIENT OBSERVER-CkLeny Tamayo RN RN lp1 Colt Haskins RN RN jb4 Mitchel Stubbs cl3
[2020-02-09] MEDS ORDERED: ONDANSETRON 4 MG (ODT) TAB ONE (23:18)
[2020-02-09] MEDS ORDERED: HYDROCODONE/APAP 10/325 TAB ONE (23:18)
[2020-02-14 23:43] VITALS: TEMP 98.5
[2020-02-14 23:44] VITALS: BP 151/107; O2SAT 100
== END 2020-02-09 23:11 | disposition home or self-care (01) ==
LOC: ER 22:09
DX: K04.7 Periapical abscess without sinus (principal); F17.210 Nicotine dependence, cigarettes, uncomplicated; Z88.0 Allergy status to penicillin; Z88.3 Allergy status to other anti-infective agents; Z88.5 Allergy status to narcotic agent
CPT/HCPCS: 99283

== ENCOUNTER 2020-03-06 12:56 | Emergency (ER) | payer SELFPAY ==
[2020-03-06 14:14] LABS: Absolute Lymphocytes (CBC) 2.4 K/uL (0.7-4.9); Basophils % 2.8 % (0-1.3); Hematocrit 37.1 % (36.0-45.0); Lymphocytes % 38.1 % (15.3-44.8); MPV 8.9 fL (7.6-11.3); RBC Red Blood Cell Count 4.31 M/uL (3.86-4.86)
[2020-03-06 14:15] LABS: Protime INR 0.93
[2020-03-06 14:29] LABS: ALT/SGPT 16 U/L (12-78); AST/SGOT 10 U/L (15-37); Albumin 3.7 g/dL (3.4-5.0); Alkaline Phosphatase 44 U/L (45-117); BUN Blood Urea Nitrogen 7 mg/dL (7-18); Bicarbonate 28 mmol/L (21-32); Bilirubin Direct < 0.1 mg/dL (0-0.2); Bilirubin Total 0.2 mg/dL (0.2-1.0); Glucose Level 100 mg/dL (74-106); Magnesium 2.3 mg/dL (1.8-2.4); NT PRO-BNP 14 pg/mL (<125); Potassium 3.6 mmol/L (3.5-5.1); Protein, Total 7.7 g/dL (6.4-8.2); Sodium Level 144 mmol/L (136-145); Troponin (Emerg Dept Use Only) < 0.02 ng/mL (0.0-0.045)
--- NOTE | 2020-03-06 14:40 | RAD REPORT ---
EXAM DESCRIPTION: CT - Head C Spine Cap W Con - 03/06/2020 2:12 pm CLINICAL HISTORY: Trauma, head and neck injury. Chest, abdomen and pelvis pain. fall, dizziness, syncope COMPARISON: No comparisons TECHNIQUE: CT head without contrast. CT cervical spine without contrast with coronal and sagittal reformatted images. CT chest, abdomen and pelvis with IV contrast (approximately 100 mL nonionic IV contrast) with regalado l and sagittal reformatted images of the spine. All CT scans are performed using dose optimization technique as appropriate and may include automated exposure control or mA/KV adjustment according to patient size. FINDINGS: CT HEAD WITHOUT CONTRAST: No intracranial hemorrhage, hydrocephalus or extra-axial fluid collection. No areas of brain edema o r midline shift. The paranasal sinuses and mastoids are clear. The calvarium is intact. CT CERVICAL SPINE WITHOUT CONTRAST: No fracture or subluxation. The prevertebral soft tissues are normal in thickness. CT CHEST, ABDOMEN, PELVIS WITH CONTRAST: The lungs are clear.No pneumothorax or pericardial/pleural fluid. Postsurgical changes are present ab out the stomach. Cholecystectomy clips are seen. No evidence of intra-abdominal visceral injury, free fluid or free air. Mild fatty liver infiltration pattern is seen. 15 mm low-density subcapsular area in the right lobe p osteriorly is present. Small hypodense are centrally in the liver also present measuring 10 mm. These are of unclear etiology but likely benign. The spleen, pancreas, adrenal glands kidneys show no acute finding. Small calculus is seen inferior r ight renal calyx without hydronephrosis. No concerning pelvic findings. No fractures. Mild lower thoracic dextroscoliosis. IMPRESSION: Negative for acute traumatic findings.
[2020-03-06] MEDS ORDERED: NA CHLORIDE 0.9% 1,000 ML ONE (15:23)
[2020-03-06 15:26] LABS: Urine Bacteria <20 /HPF (<20); Urine RBC <5 /HPF (NONE SEEN)
--- NOTE | 2020-03-06 16:09 | EDPHYS ---
Physician Documentation [facility] Name: Francy Rodriguez Age: 39 yrs Sex: Female : 1980 Arrival Date: 03/06/2020 Time: 12:58 Bed 5 Private MD: ED Physician Bo Hammond HPI: 03/06 14:14 This 39 yrs old Female presents to ER via Ambulatory with complaints of kb Dizziness. 14:14 The patient presents with dizziness. Onset: The symptoms/episode began/occurred 2 kb day(s) ago. Context: occurred at work, occurred while the patient was standing. Modifying factors: The symptoms are alleviated by nothing, the symptoms are aggravated by nothing. Associated signs and symptoms: Pertinent positives: syncope. Severity of symptoms: At their worst the symptoms were moderate in the emergency department the symptoms have improved mildly. Patient's baseline: Neuro: alert and fully oriented, Motor: no deficits, Ambulation: walks without assistance, Speech: normal. The patient has not experienced similar symptoms in the past. The patient has not recently seen a physician. Pt reports she was at work 2.5 days ago and felt very dizzy so she held onto a shelf. States a coworker asked if she was ok and the next thing she remembered is being helped up off the floor. Pt has bruising to her posterior torso from hitting a cart and a well approximated, small laceration to the back of her head. Pt reports headache since that occurred. Pt states she hadn't had any more dizziness until today. Came in because she doesn't have any reason to have dizziness so she wanted to find the cause. Historical: - Allergies: 13:22 Morphine; aa5 13:22 PENICILLINS; aa5 13:22 Rocephin; aa5 - PMHx: 13:22 Anxiety; Asthma; COPD; Depression; aa5 - PSHx: 13:22 Gastric Bypass; ; aa5 - Immunization history:: Adult Immunizations unknown. - Social history:: Smoking status: Patient reports the use of cigarette tobacco products, smokes one-half pack cigarettes per day. ROS: 14:12 Constitutional: Negative for fever, chills, and weight loss, Cardiovascular: Negative kb for chest pain, palpitations, and edema, Respiratory: Negative for shortness of breath, cough, wheezing, and pleuritic chest pain, Abdomen/GI: Negative for abdominal pain, nausea, vomiting, diarrhea, and constipation, MS/Extremity: Negative for injury and deformity. 14:12 Skin: Positive for laceration(s), of the back of head. 14:12 Neuro: Positive for dizziness, headache, syncope. Exam: 14:13 Constitutional: This is a well developed, well nourished patient who is awake, alert, kb and in no acute distress. Eyes: Pupils equal round and reactive to light, extra-ocular motions intact. Lids and lashes normal. Conjunctiva and sclera are non-icteric and not injected. Cornea within normal limits. Periorbital areas with no swelling, redness, or edema. Chest/axilla: Normal chest wall appearance and motion. Nontender with no deformity. No lesions are appreciated. Cardiovascular: Regular rate and rhythm with a normal S1 and S2. No gallops, murmurs, or rubs. Normal PMI, no JVD. No pulse deficits. Respiratory: Lungs have equal breath sounds bilaterally, clear to auscultation and percussion. No rales, rhonchi or wheezes noted. No increased work of breathing, no retractions or nasal flaring. Abdomen/GI: Soft, non-tender, with normal bowel sounds. No distension or tympany. No guarding or rebound. No evidence of tenderness throughout. MS/ Extremity: Pulses equal, no cyanosis. Neurovascular intact. Full, normal range of motion. Neuro: Awake and alert, GCS 15, oriented to person, place, time, and situation. Cranial nerves II-XII grossly intact. Motor strength 5/5 in all extremities. Sensory grossly intact. Cerebellar exam normal. Normal gait. 14:13 Head/face: Noted is no obvious of injury or deformity except a laceration(s), that is superficial, 1 cm(s), of the back of head. 14:40 ECG was reviewed by the Attending Physician. kb 14:52 Skin: injury, contusion(s), that are superficial, of the left subscapular area, left kb low back and left mid back. Vital Signs: 13:10 BP 115 / 94; Pulse 95; Resp 18 S; Temp 98.9(TE); Pulse Ox 98% on R/A; Weight 80.74 kg aa5 (R); Height 6 ft. 0 in. (182.88 cm) (R); Pain 2/10; 14:42 BP 108 / 79 Supine; Pulse 75; Resp 12; Pulse Ox 98% on R/A; mh5 14:44 BP 117 / 87 Sitting; Pulse 84; Resp 17; Pulse Ox 99% on R/A; mh5 14:45 BP 112 / 93 Standing; Pulse 99; Resp 13; Pulse Ox 97% on R/A; mh5 15:42 BP 90 / 60; Pulse 78; Resp 16; Pulse Ox 100% ; bp 16:44 BP 100 / 64; Pulse 76; Resp 21; Temp 98.5; Pulse Ox 96% ; bp 13:10 Body Mass Index 24.14 (80.74 kg, 182.88 cm) aa5 MDM: 13:38 Patient medically screened. kb 14:12 Data reviewed: vital signs, nurses notes. Data interpreted: Pulse oximetry: on room air kb is 98 %. Interpretation: normal. 16:07 Counseling: I had a detailed discussion with the patient and/or guardian regarding: the kb historical points, exam findings, and any diagnostic results supporting the discharge/admit diagnosis, lab results, radiology results, the need for outpatient follow up, a family practitioner, to return to the emergency department if symptoms worsen or persist or if there are any questions or concerns that arise at home. 03/06 13:37 Order name: Basic Metabolic Panel; Complete Time: 14:30 kb 03/06 13:37 Order name: CBC with Diff; Complete Time: 14:25 kb 03/06 13:37 Order name: LFT's; Complete Time: 14:30 kb 03/06 13:37 Order name: Magnesium; Complete Time: 14:30 kb 03/06 13:37 Order name: NT PRO-BNP; Complete Time: 14:30 kb 03/06 13:37 Order name: PT-INR; Complete Time: 14:33 kb 03/06 13:37 Order name: Troponin (emerg Dept Use Only); Complete Time: 14:30 kb 03/06 13:38 Order name: CT Traumagram (Head C Spine CAP W Con); Complete Time: 14:41 kb 03/06 14:48 Order name: CREATININE WHOLE BLOOD; Complete Time: 14:52 EDMS 03/06 14:58 Order name: Urine Microscopic Only; Complete Time: 15:29 kb 03/06 14:59 Order name: Urine --Ancillary (enter results) kb 03/06 14:59 Order name: Urine Dipstick--Ancillary (enter results) kb 03/06 15:27 Order name: Urine Culture EDMT 03/06 13:26 Order name: Orthostatics; Complete Time: 15:05 kb 03/06 13:26 Order name: Urine Dipstick-Ancillary (obtain specimen); Complete Time: 15:04 kb 03/06 13:37 Order name: EKG; Complete Time: 13:38 kb 03/06 13:37 Order name: Cardiac monitoring; Complete Time: 14:03 kb 03/06 13:37 Order name: EKG - Nurse/Tech; Complete Time: 15:05 kb 03/06 13:37 Order name: IV Saline Lock; Complete Time: 14:03 kb 03/06 13:37 Order name: Labs collected and sent; Complete Time: 14:03 kb 03/06 13:37 Order name: O2 Per Protocol; Complete Time: 14:03 kb 03/06 13:37 Order name: O2 Sat Monitoring; Complete Time: 14:03 kb EC:40 Rate is 78 beats/min. Rhythm is regular. QRS [place] is Normal. VA interval is normal at kb 154 msec. QRS interval is normal at 80 msec. QT interval is normal at 402 msec. Administered Medications: 15:10 Drug: NS 0.9% 1000 ml Route: IV; Rate: 1000 ml; Site: left antecubital; bp 16:45 Follow up: IV Status: Completed infusion; IV Intake: 1000ml bp Disposition: 17:31 Co-signature as Attending Physician, Bo Hammond MD I agree with the assessment and kdr plan of care. Disposition: 03/06/20 16:08 Discharged to Home. Impression: Dizziness and giddiness, Syncope and collapse, Contusion of back wall of thorax, Contusion of lower back and pelvis, Superficial injury of head. - Condition is Stable. - Discharge Instructions: Syncope, [id number]-[id number], Dehydration, Adult, [id number], Head Injury, Adult, Cuax-er-Ulrw, Dizziness, [id number]-[id number]. - Medication Reconciliation Form, Thank You Letter, Antibiotic Education, Prescription Opioid Use form. - Follow up: Emergency Department; When: As needed; Reason: Worsening of condition. Follow up: Private Physician; When: 2 - 3 days; Reason: Recheck today's complaints, Continuance of care, Re-evaluation by your physician. Signatures: Dispatcher [employer] [facility] Gladys Chavez, TOPHER OLIVARESP-Bo Larsen MD MD kdr Calderon, Audri, RN RN aa5 Prasad Rinaldi RN RN bp Corrections: (The following items were deleted from the chart) 13:45 13:38 Head Brain Wo Cont+CT.RAD.BRZ ordered. [facility] 14:13 14:12 Neuro: Positive for dizziness, syncope, kb kb 14:53 14:13 Constitutional: This is a well developed, well nourished patient who is awake, kb alert, and in no acute distress. Eyes: Pupils equal round and reactive to light, extra-ocular motions intact. Lids and lashes normal. Conjunctiva and sclera are non-icteric and not injected. Cornea within normal limits. Periorbital areas with no swelling, redness, or edema. Chest/axilla: Normal chest wall appearance and motion. Nontender with no deformity. No lesions are appreciated. Cardiovascular: Regular rate and rhythm with a normal S1 and S2. No gallops, murmurs, or rubs. Normal PMI, no JVD. No pulse deficits. Respiratory: Lungs have equal breath sounds bilaterally, clear to auscultation and percussion. No rales, rhonchi or wheezes noted. No increased work of breathing, no retractions or nasal flaring. Abdomen/GI: Soft, non-tender, with normal bowel sounds. No distension or tympany. No guarding or rebound. No evidence of tenderness throughout. Skin: Warm, dry with normal turgor. Normal color with no rashes, no lesions, and no evidence of cellulitis. MS/ Extremity: Pulses equal, no cyanosis. Neurovascular intact. Full, normal range of motion. Neuro: Awake and alert, GCS 15, oriented to person, place, time, and situation. Cranial nerves II-XII grossly intact. Motor strength 5/5 in all extremities. Sensory grossly intact. Cerebellar exam normal. Normal gait. kb 16:46 16:08 03/06/2020 16:08 Discharged to Home. Impression: Dizziness and giddiness; Syncope bp and collapse; Contusion of back wall of thorax; Contusion of lower back and pelvis; Superficial injury of head. Condition is Stable. Forms are Medication Reconciliation Form, Thank You Letter, Antibiotic Education, Prescription Opioid Use. Follow up: Emergency Department; When: As needed; Reason: Worsening of condition. Follow up: Private Physician; When: 2 - 3 days; Reason: Recheck today's complaints, Continuance of care, Re-evaluation by your physician. kb
--- NOTE | 2020-03-06 16:09 | ER ---
Nurse's Notes [facility] Name: Francy Rodriguez Age: 39 yrs Sex: Female : 1980 Arrival Date: 03/06/2020 Time: 12:58 Bed 5 Private MD: Diagnosis: Dizziness and giddiness;Syncope and collapse;Contusion of back wall of thorax;Contusion of lower back and pelvis;Superficial injury of head Presentation: 03/06 13:08 Chief complaint: Patient states: Dizziness for 2-3 days. Pt states "I was at work 2 aa5 days ago and I got really dizzy and held on to a shelf and the last thing I remember was telling my co-worker I was dizzy and I woke up to them picking me up from the floor". Pt reports laceration to back of head, pain to back and head. Pt states "today I felt very dizzy like I did 2 days ago". Pt denies nausea, denies vomiting. 13:08 Coronavirus screen: Client denies travel out of the [place] in the last 14 days. At this aa5 time, the client does not indicate any symptoms associated with coronavirus-19. Ebola Screen: Patient negative for fever greater than or equal to 101.5 degrees Fahrenheit, and additional compatible Ebola Virus Disease symptoms. Initial Sepsis Screen: Does the patient meet any 2 criteria? No. Patient's initial sepsis screen is negative. Does the patient have a suspected source of infection? No. Patient's initial sepsis screen is negative. Risk Assessment: Do you want to hurt yourself or someone else? Patient reports no desire to harm self or others. Onset of symptoms was February 2020. 13:08 Acuity: TOBIAS 3 aa5 13:08 Method Of Arrival: Ambulatory aa5 Triage Assessment: 13:15 General: Appears in no apparent distress. uncomfortable, Behavior is cooperative, bp appropriate for age, anxious. Pain: Complains of pain in back of head. EENT: No deficits noted. Neuro: Level of Consciousness is awake, alert, obeys commands, Oriented to Appropriate for age Reports dizziness, a syncopal episode. Cardiovascular: Rhythm is sinus rhythm. Respiratory: No deficits noted. GI: No signs and/or symptoms were reported involving the gastrointestinal system. : No signs and/or symptoms were reported regarding the genitourinary system. Derm: No deficits noted. Musculoskeletal: No deficits noted. Historical: - Allergies: 13:22 Morphine; aa5 13:22 PENICILLINS; aa5 13:22 Rocephin; aa5 - PMHx: 13:22 Anxiety; Asthma; COPD; Depression; aa5 - PSHx: 13:22 Gastric Bypass; ; aa5 - Immunization history:: Adult Immunizations unknown. - Social history:: Smoking status: Patient reports the use of cigarette tobacco products, smokes one-half pack cigarettes per day. Screenin:15 Abuse screen: Denies threats or abuse. Denies injuries from another. Nutritional bp screening: No deficits noted. Tuberculosis screening: No symptoms or risk factors identified. Fall Risk None identified. Assessment: 13:15 General: SEE TRIAGE NOTE. bp 14:30 Reassessment: No changes from previously documented assessment. Patient and/or family bp updated on plan of care and expected duration. Pain level reassessed. Patient is alert, oriented x 3, equal unlabored respirations, skin warm/dry/pink. PT RETURNED FROM CT. 15:30 Reassessment: No changes from previously documented assessment. Patient and/or family bp updated on plan of care and expected duration. Pain level reassessed. Patient is alert, oriented x 3, equal unlabored respirations, skin warm/dry/pink. ALL CURRENT ORDERS COMPLETED. 16:44 Reassessment: PT D/ C HOME AMBULATORY WITH FAMILY, DX WITH DIZZINESS. bp Vital Signs: 13:10 BP 115 / 94; Pulse 95; Resp 18 S; Temp 98.9(TE); Pulse Ox 98% on R/A; Weight 80.74 kg aa5 (R); Height 6 ft. 0 in. (182.88 cm) (R); Pain 2/10; 14:42 BP 108 / 79 Supine; Pulse 75; Resp 12; Pulse Ox 98% on R/A; mh5 14:44 BP 117 / 87 Sitting; Pulse 84; Resp 17; Pulse Ox 99% on R/A; mh5 14:45 BP 112 / 93 Standing; Pulse 99; Resp 13; Pulse Ox 97% on R/A; mh5 15:42 BP 90 / 60; Pulse 78; Resp 16; Pulse Ox 100% ; bp 16:44 BP 100 / 64; Pulse 76; Resp 21; Temp 98.5; Pulse Ox 96% ; bp 13:10 Body Mass Index 24.14 (80.74 kg, 182.88 cm) aa5 ED Course: 12:58 Patient arrived in ED. ag5 13:08 Prasad Rinaldi, RN is Primary Nurse. bp 13:08 Arm band placed on. aa5 13:15 Patient has correct armband on for positive identification. Bed in low position. Call bp light in reach. Side rails up X2. Adult w/ patient. 13:21 Triage completed. aa5 13:26 Gladys Chavez FNP-C is PHCP. kb 13:26 Bo Hammond MD is Attending Physician. kb 14:05 Initial lab(s) drawn, by ne, sent to lab. Inserted saline lock: 22 gauge in left 5 antecubital area, using aseptic technique. Blood collected. 14:06 Pillow given. Pulse ox on. NIBP on. [facility] 14:12 CT Traumagram (Head C Spine CAP W Con) In Process Unspecified. EDMS 16:45 No provider procedures requiring assistance completed. IV discontinued, intact, bp bleeding controlled, No redness/swelling at site. Pressure dressing applied. Administered Medications: 15:10 Drug: NS 0.9% 1000 ml Route: IV; Rate: 1000 ml; Site: left antecubital; bp 16:45 Follow up: IV Status: Completed infusion; IV Intake: 1000ml bp Intake: 16:45 IV: 1000ml; Total: 1000ml. bp Outcome: 16:08 Discharge ordered by MD. kb 16:45 Discharged to home ambulatory, with family. bp 16:45 Condition: stable 16:45 Discharge instructions given to patient, Instructed on discharge instructions, follow up and referral plans. Demonstrated understanding of instructions, follow-up care. 16:46 Patient left the ED. bp Addendum: 03/10/2020 09:50 Addendum: Culture Results: Positive urine culture. Patient was not prescribed s s antibiotics at discharge. Report given to JEVON for further evaluation and then to chair car attendant for follow up with patient. Phone call Attempt #1 Gladys Chavez NP recommends to take Macrobid 100 mg PO PO BID x5 days # 10. Attempted to call patient. No answer. Left Certified letter sent to listed address for patient. Signatures: Dispatcher [employer] [facility] Gladys Chavez FNP-C [employer] DEVELOPER-Ckb Suly Kam, RN RN aa5 Marva Betancourt, RN RN Marlen Boss [facility] Prasad Rinaldi RN RN bp Mac Bryan 5
[2020-03-06 16:57] VITALS: BP 100/64; TEMP 98.5; O2SAT 96
[2020-03-06 19:12] LABS: Urine Blood NEGATIVE (NEG); Urine Glucose NEGATIVE (NEG); Urine Protein NEGATIVE (NEG)
--- NOTE | 2020-03-08 16:14 | EKG ---
Test Date: 2020-03-06 Test Time: 14:38:43 Fancy Sewer: JENNIFER MEASUREMENT RESULTS: Intervals: Rate: 78 VA: 154 QRSD: 80 QT: 402 QTc: 458 [place]: P: 71 VA: 154 QRS: 57 T: 58 INTERPRETIVE STATEMENTS: Normal sinus rhythm Possible Left atrial enlargement Borderline ECG Compared to ECG 01/02/2020 21:09:19 Sinus tachycardia no longer present Electronically Signed On 03-08-20 16:09:57 BIZTALK ARCHITECT by Dusty Mercer
== END 2020-03-06 16:46 | disposition home or self-care (01) ==
LOC: ER 12:56
DX: S01.01XA Laceration without foreign body of scalp, initial encounter (principal); R55 Syncope and collapse; S30.0XXA Contusion of lower back and pelvis, initial encounter; S20.229A Contusion of unspecified back wall of thorax, initial encounter; F17.210 Nicotine dependence, cigarettes, uncomplicated; Z88.0 Allergy status to penicillin; Z88.3 Allergy status to other anti-infective agents; Z88.5 Allergy status to narcotic agent
CPT/HCPCS: 36415; 70450; 71260; 72125; 74177; 80048; 80076; 81003; 81015; 81025; 82565; 83735; 83880; 84484; 85025; 85610; 87077; 87086; 87088; 87186; 93005; 96360; 96361; 99284; J7030; Q9967

== ENCOUNTER 2020-06-19 07:11 | Emergency (ER) | payer SELFPAY ==
[2020-06-19] MEDS ORDERED: METHYLPREDNISOLONE 125 MG INJ ONE (20:54)
[2020-06-19] MEDS ORDERED: LEVALBUTEROL 1.25 MG/3 ML NEB ONE (20:54)
--- NOTE | 2020-06-19 21:19 | ER ---
Nurse's Notes [facility] Name: Francy Rodriguez Age: 40 yrs Sex: Female : 1980 Arrival Date: 06/19/2020 Time: 19:11 Bed 5 Private MD: Diagnosis: Asthma Presentation: 06/19 19:56 Chief complaint: Patient states: she is having difficulty with her asthma she has chest bb heaviness, coughing. Coronavirus screen: At this time, the client does not indicate any symptoms associated with coronavirus-19. Ebola Screen: No symptoms or risks identified at this time. Initial Sepsis Screen: Does the patient meet any 2 criteria? No. Patient's initial sepsis screen is negative. Does the patient have a suspected source of infection? No. Patient's initial sepsis screen is negative. Risk Assessment: Do you want to hurt yourself or someone else? Patient reports no desire to harm self or others. Onset of symptoms was June 12, 2020. 19:56 Method Of Arrival: Ambulatory 19:56 Acuity: TOBIAS 3 bb Triage Assessment: 19:59 General: Appears in no apparent distress. Behavior is calm, cooperative. Pain: Denies bb pain. Neuro: Level of Consciousness is awake, alert, obeys commands, Oriented to person, place, time, situation. Cardiovascular: Capillary refill < 3 seconds Patient's skin is warm and dry. Respiratory: Respiratory effort is even, unlabored, Respiratory pattern is regular. Derm: Musculoskeletal: Circulation, motion, and sensation intact. INTERNET SOURCER: 19:59 LMP 06/15/2020 bb Historical: - Allergies: 19:59 Morphine; bb 19:59 PENICILLINS; bb 19:59 Rocephin; bb - Home Meds: 19:59 Omeprazole Oral [Active]; Albuterol Inhl [Active]; bb - PMHx: 19:59 Anxiety; Asthma; COPD; Depression; bb - PSHx: 19:59 Gastric Bypass; ; bb - Immunization history:: Adult Immunizations up to date. - Social history:: Smoking status: Patient reports the use of cigarette tobacco products, 2 cigarettes a day. - Family history:: not pertinent. - Hospitalizations: : No recent hospitalization is reported. Screenin:45 Abuse screen: Denies threats or abuse. Denies injuries from another. Nutritional mg2 screening: No deficits noted. Tuberculosis screening: No symptoms or risk factors identified. Fall Risk None identified. Assessment: 20:45 General: Appears in no apparent distress. comfortable, Behavior is calm, cooperative. mg2 Pain: Denies pain. Neuro: Level of Consciousness is awake, alert, obeys commands, Oriented to person, place, time, situation. Cardiovascular: Capillary refill < 3 seconds Patient's skin is warm and dry. Respiratory: Reports shortness of breath at rest. GI: No signs and/or symptoms were reported involving the gastrointestinal system. : No signs and/or symptoms were reported regarding the genitourinary system. EENT: No signs and/or symptoms were reported regarding the EENT system. Derm: Skin is intact, is healthy with good turgor, Skin is pink, warm \T\ dry. normal. Musculoskeletal: Circulation, motion, and sensation intact. Capillary refill < 3 seconds. Vital Signs: 19:56 BP 116 / 77; Pulse 104; Resp 18 S; Temp 98.3(O); Pulse Ox 97% on R/A; Weight 81.65 kg bb (R); Height 6 ft. 0 in. (182.88 cm) (R); Pain 0/10; 20:45 BP 108 / 73; Pulse 93; Resp 18; Pulse Ox 100% on Nebulizer Mask; mg2 19:56 Body Mass Index 24.41 (81.65 kg, 182.88 cm) bb ED Course: 19:11 Patient arrived in ED. cl3 19:58 Triage completed. bb 19:59 Arm band placed on Patient placed in waiting room, Patient notified of wait time. bb 20:24 Michel Wise MD is Attending Physician. rn 20:34 Tono Chavez, JHOANA is Primary Nurse. mg2 20:45 Patient has correct armband on for positive identification. Pulse ox on. NIBP on. Door mg2 closed. 20:46 No provider procedures requiring assistance completed. Patient did not have IV access mg2 during this emergency room visit. Administered Medications: 20:44 Drug: SOLU-Medrol (methylPREDNISolone sodium succinate) 125 mg Route: IM; Site: right mg2 gluteus; 20:44 Drug: Xopenex (levalbuterol) (3) 1.25 mg Route: Inhalation; mg2 Outcome: 21:18 Discharge ordered by . rn 21:37 Discharged to home ambulatory, with family. mg2 21:37 Condition: stable 21:37 Discharge instructions given to patient, family, Instructed on discharge instructions, follow up and referral plans. medication usage, Demonstrated understanding of instructions, follow-up care, medications, Prescriptions given X 2. 21:38 Patient left the ED. mg2 Signatures: Vdihya Walton RN RN bb Michel Wise MD MD rn Gardose, Michele, RN RN mg2 Mitchel Stubbs cl3
--- NOTE | 2020-06-19 21:19 | EDPHYS ---
Physician Documentation [facility] Name: Francy Rodriguez Age: 40 yrs Sex: Female : 1980 Arrival Date: 06/19/2020 Time: 19:11 Bed 5 Private MD: ED Physician Michel Wise HPI: 06/19 20:56 This 40 yrs old Female presents to ER via Ambulatory with complaints of rn Asthma. 20:56 The patient has shortness of breath at rest, with light activity. Onset: The rn symptoms/episode began/occurred 1 week(s) ago. Duration: The symptoms are intermittent. The patient's shortness of breath is aggravated by exertion, light activity, is alleviated by inhaler. Associated signs and symptoms: Pertinent positives: non-productive cough, Pertinent negatives: fever, hemoptysis. Severity of symptoms: At their worst the symptoms were mild in the emergency department the symptoms are unchanged. The patient has experienced similar episodes in the past. Reports smoker and has asthma, experiencing wheezing and asthma symptoms for 1 week, new to area, reports similar to previous asthma attacks, no sick contacts, doesn't feel sick, no fever/runny nose/diarrhea/change in taste or smell. Reports came in because ran out of inhaler. . [employer]: 19:59 LMP 06/15/2020 bb Historical: - Allergies: 19:59 Morphine; bb 19:59 PENICILLINS; bb 19:59 Rocephin; bb - Home Meds: 19:59 Omeprazole Oral [Active]; Albuterol Inhl [Active]; bb - PMHx: 19:59 Anxiety; Asthma; COPD; Depression; bb - PSHx: 19:59 Gastric Bypass; ; bb - Immunization history:: Adult Immunizations up to date. - Social history:: Smoking status: Patient reports the use of cigarette tobacco products, 2 cigarettes a day. - Family history:: not pertinent. - Hospitalizations: : No recent hospitalization is reported. ROS: 20:56 Constitutional: Negative for fever, chills, and weight loss, Eyes: Negative for injury, rn pain, redness, and discharge, Neck: Negative for injury, pain, and swelling, Cardiovascular: Negative for chest pain, palpitations, and edema, Respiratory: Negative for pleuritic chest pain Abdomen/GI: Negative for abdominal pain, nausea, vomiting, diarrhea, and constipation, Back: Negative for injury and pain, MS/Extremity: Negative for injury and deformity, Skin: Negative for injury, rash, and discoloration, Neuro: Negative for headache, weakness, numbness, tingling, and seizure. Exam: 20:56 Constitutional: This is a well developed, well nourished patient who is awake, alert, rn and in no acute distress. Ambulatory to room without difficulty. Head/Face: Normocephalic, atraumatic. Eyes: Pupils equal round and reactive to light, extra-ocular motions intact. Lids and lashes normal. Conjunctiva and sclera are non-icteric and not injected. Cornea within normal limits. Periorbital areas with no swelling, redness, or edema. ENT: NO stridor. Cardiovascular: Regular rate and rhythm. No pulse deficits. Respiratory: + mild tachypnea, + diffuse wheezing, no retractions, speaking full sentences. Abdomen/GI: soft, non-tender Skin: Warm, dry MS/ Extremity: Pulses equal, no cyanosis. Neuro: Awake and alert, GCS 15 Vital Signs: 19:56 BP 116 / 77; Pulse 104; Resp 18 S; Temp 98.3(O); Pulse Ox 97% on R/A; Weight 81.65 kg bb (R); Height 6 ft. 0 in. (182.88 cm) (R); Pain 0/10; 20:45 BP 108 / 73; Pulse 93; Resp 18; Pulse Ox 100% on Nebulizer Mask; mg2 19:56 Body Mass Index 24.41 (81.65 kg, 182.88 cm) bb MDM: 20:24 Patient medically screened. rn 21:18 Differential diagnosis: asthma, Bronchitis reactive airway disease. Data reviewed: rn vital signs, nurses notes, and as a result, I will discharge patient. Counseling: I had a detailed discussion with the patient and/or guardian regarding: the historical points, exam findings, and any diagnostic results supporting the discharge/admit diagnosis, the need for outpatient follow up, to return to the emergency department if symptoms worsen or persist or if there are any questions or concerns that arise at home. Medical screen evaluation completed. [facility] emergency medical condition absent. Response to treatment: the patient's symptoms have markedly improved after treatment, and as a result, I will discharge patient. Special discussion: I discussed with the patient/guardian in detail that at this point there is no indication for admission to the hospital. It is understood, however, that if the symptoms persist or worsen the patient needs to return immediately for re-evaluation. Administered Medications: 20:44 Drug: SOLU-Medrol (methylPREDNISolone sodium succinate) 125 mg Route: IM; Site: right mg2 gluteus; 20:44 Drug: Xopenex (levalbuterol) (3) 1.25 mg Route: Inhalation; mg2 Disposition: 06/19/20 21:18 Discharged to Home. Impression: Asthma. - Condition is Stable. - Discharge Instructions: Asthma, Acute Bronchospasm. - Prescriptions for Prednisone 20 mg Oral Tablet - take 3 tablet by ORAL route once daily for 5 days; 15 tablet. Albuterol Sulfate 90 mcg/actuation - inhale 1-2 puff by INHALATION route every 4-6 hours; 1 Inhaler. - Medication Reconciliation Form, Thank You Letter, Antibiotic Education, Prescription Opioid Use, Family Work Release form. - Follow up: Private Physician; When: As needed; Reason: Recheck today's complaints, Re-evaluation by your physician. - Problem is an acute exacerbation. - Symptoms have improved. Signatures: Vidhya Walton RN RN bb Michel Wise MD MD rn Gardose, Michele, RN RN mg2 Corrections: (The following items were deleted from the chart) 21:38 21:18 06/19/2020 21:18 Discharged to Home. Impression: Asthma. Condition is Stable. mg2 Forms are Medication Reconciliation Form, Thank You Letter, Antibiotic Education, Prescription Opioid Use. Follow up: Private Physician; When: As needed; Reason: Recheck today's complaints, Re-evaluation by your physician. Problem is an acute exacerbation. Symptoms have improved. rn
[2020-06-19 22:14] VITALS: TEMP 98.3
[2020-06-19 22:15] VITALS: BP 108/73; O2SAT 100
== END 2020-06-19 21:38 | disposition home or self-care (01) ==
LOC: ER 07:11
DX: J45.909 Unspecified asthma, uncomplicated (principal); F41.8 Other specified anxiety disorders; F17.210 Nicotine dependence, cigarettes, uncomplicated; Z88.0 Allergy status to penicillin; Z88.3 Allergy status to other anti-infective agents; Z88.5 Allergy status to narcotic agent
CPT/HCPCS: 96372; 99284; J2930